=== PATIENT | male | born 1990 | race Caucasian/White ===

== ENCOUNTER 2019-04-20 20:14 | Emergency (ER) | payer MEDICAID ==
[~2019-04-20] VITALS: Ht 172.7 cm; Wt 77.3 kg
[~2019-04-20 20:14] MED LIST: AMOX875T2 PO; ONDA8TAB9 PO; PRED10TA PO
[2019-04-20 20:23] VITALS: BP 141/92
[2019-04-20] MEDS ORDERED: PENI250T2 PO (21:18)
[2019-04-20] MEDS ORDERED: NAPR-56 PO (21:18)
== END 2019-04-20 21:24 | disposition home or self-care (01) ==
LOC: ER 20:14
DX: K08.89 Other specified disorders of teeth and supporting structures (principal); J45.909 Unspecified asthma, uncomplicated; Z86.69 Personal history of other diseases of the nervous system and sense organs; Z79.899 Other long term (current) drug therapy
CPT/HCPCS: 99283